=== PATIENT | female | born 2000 | race Caucasian/White ===

== ENCOUNTER → 2020-02-17 | Outpatient (CLI) | payer BC | END | disposition home or self-care (01) | LOC: COVID19 12:40 | PROVIDERS: ATTEND Internal Medicine | DX: Z20.828 Contact with and (suspected) exposure to other viral communicable diseases (principal) ==

== ENCOUNTER → 2024-06-02 | Outpatient (CLI) | payer OTHER ==
[2024-06-02 09:22] LABS: BASO % 0.1 % (0.0-1.0); EOS # 0.1 10*3/uL (0.0-0.4); EOS % 0.8 % (1.0-4.0); MEAN CELL VOLUME 89.8 fl (81.0-99.0); MEAN CORPUSCULAR HGB 28.8 pg (27.0-31.0); MEAN CORPUSCULAR HGB CONC 32.1 g/dl (33.0-37.0); MEAN PLATELET VOLUME 8.8 fl (9.6-12.3); MONO # 0.5 10*3/uL (0.1-1.0); MONO % 4.9 % (3.0-9.0); NEUT # 7.4 10*3/uL (2.3-7.9); NEUT % 76.8 % (47.0-73.0); PLATELET COUNT AUTOMATED 326 10*3/uL (130-400); RED BLOOD COUNT 4.79 10*6/uL (4.10-5.10); RED CELL DISTRI WIDTH 12.9 % (0-14.5); WHITE BLOOD COUNT 9.6 10*3/uL (4.8-10.8)
[2024-06-02 10:31] LABS: ALKALINE PHOSPHATASE 81 U/L (46-116); BUN 9 mg/dl (9-23); CHLORIDE 107 mmol/L (98-107); CHOLESTEROL 162 mg/dL (<200); LDL CHOLESTEROL 91 mg/dL (9-159); POTASSIUM 3.7 mmol/L (3.4-5.1); SGPT/ALT 22 U/L (5-49); TRIGLYCERIDES 137 mg/dl (<150)
== END | disposition home or self-care (01) ==
LOC: LAB 08:56
PROVIDERS: ATTEND Student in an Organized Health Care Education/Training Program
DX: I49.9 Cardiac arrhythmia, unspecified (principal); E78.5 Hyperlipidemia, unspecified; R89.9 Unspecified abnormal finding in specimens from other organs, systems and tissues; R53.83 Other fatigue; R79.89 Other specified abnormal findings of blood chemistry

== ENCOUNTER → 2024-06-15 | Outpatient (CLI) | payer OTHER | END | disposition home or self-care (01) | LOC: CARD 09:35 | PROVIDERS: ATTEND Student in an Organized Health Care Education/Training Program | DX: I49.9 Cardiac arrhythmia, unspecified (principal) ==

== ENCOUNTER → 2024-07-18 | Outpatient (CLI) | payer OTHER | END | disposition home or self-care (01) | LOC: RAD 12:39 | PROVIDERS: ATTEND Family Medicine | DX: M25.532 Pain in left wrist (principal) ==

== ENCOUNTER 2024-09-10 06:02 | Emergency (ER) | payer OTHER ==
[~2024-09-10] VITALS: Ht 175.2 cm; Wt 81.6 kg
[2024-09-10] MEDS ORDERED: AMOXICILLIN 500 MG CAP PO ONE (06:20)
[2024-09-10] MEDS ORDERED: NAPROXEN 250 MG TAB PO ONE (06:20)
[2024-09-10] MEDS ORDERED: TYLE3UD PO (06:21)
[2024-09-10] MEDS ORDERED: AMOXICILLIN500 M2 PO (06:21)
== END 2024-09-10 06:54 | disposition home or self-care (01) ==
LOC: ED 06:02
DX: H66.91 Otitis media, unspecified, right ear (principal); H92.03 Otalgia, bilateral; J06.9 Acute upper respiratory infection, unspecified

== ENCOUNTER 2025-02-23 22:14 | Emergency (ER) | payer OTHER ==
[~2025-02-23] VITALS: Ht 175.2 cm; Wt 81.6 kg
[~2025-02-23 22:14] MED LIST: AMOXICILLIN500 M2 PO; TYLE3UD PO
[2025-02-24] MEDS ORDERED: predniSONE 20 MG TAB PO ONE (00:25)
[2025-02-24] MEDS ORDERED: PREDNISONE20 M1 PO (00:47)
== END 2025-02-24 00:53 | disposition home or self-care (01) ==
LOC: ED 22:14
DX: J00 Acute nasopharyngitis [common cold] (principal); R51.9 Headache, unspecified